=== PATIENT | female | born 1995 | race Caucasian/White ===

== ENCOUNTER 2017-11-25 13:49 | Emergency (ER) | payer MEDICAID ==
[~2017-11-25 13:49] MED LIST: ACE325 PO; ACET-1966 PO; AMOX-362 PO; CIP500 PO; CIPR-344 PO; DICL100T54 PO; DOCO200C PO; DOXY150T6 PO; GENT3.5O26 OP; HYDR-3074 PO; HYDR-3250 PO; HYDR12.561 PO; IBUP600T22 PO; IBUP800T37 PO; LACT1CAP6 PO; LOR5/325 PO; MED150I IM; METR250 PO; MINOCY50PT PO; MUP2T TOP; NAP500 PO; NITR-105 PO; NORG1TAB6; ONDA-153 SL; ONDA4TAB PO; ONDA4TAB97 PO; PERM60CR TP; PHEN-530 PO; PRE10 PO; PREN-129 PO; QUET200T29 PO; TRA50 PO; TRAM-627 PO; TRAZ-133 PO; TRAZADONE; VENL150C61 PO; VENL37.594 PO
[2017-11-25] MEDS ORDERED: NS(*) 0.9% 1000 ML BAG 1,000 ML IV ONE (14:00)
--- NOTE | 2017-11-25 14:01 | ER Report ---
History and Physical Time Seen By MD: 14:01 Hx. of Stated Complaint: Hematuria HPI/ROS 22-year-old female has had dysuria today woke up with left flank pain and blood in her urine Allergies: Coded Allergies: Sulfa (Sulfonamide Antibiotics) (Verified Allergy, Mild, 10/21/15) nitrofurantoin (Verified Allergy, Unknown, 10/21/15) Home Meds Active Scripts Ciprofloxacin Hcl (CIPROFLOXACIN HCL) 500 Mg Tablet, 500 MG PO Q12H, #14 TAB Prov:MATTIE SUN 11/25/17 Reported Medications Venlafaxine Hcl (EFFEXOR XR) 150 Mg Cap.er.24h, 150 MG PO QDAY 10/21/15 Discontinued Reported Medications Hydrochlorothiazide (HYDROCHLOROTHIAZIDE) 12.5 Mg Tablet, 1 TAB PO QDAY, TAB 10/21/15 Lactobacillus Combination No.4 (PROBIOTIC) 1 Each Capsule, 1 EACH PO DAILY, CAPSULE 10/21/15 Vit37/Iron/Folic Acid (PRENATA CHEWABLE TABLET) 1 Each Tab.chew, 1 EACH PO DAILY, TAB.CHEW 10/21/15 Venlafaxine Hcl (EFFEXOR XR) 37.5 Mg Cap.er.24h, 37.5 MG PO QDAY 10/21/15 Docosahexanoic Acid ( DHA) 200 Mg Capsule, 200 MG PO 04/12/13 Discontinued Scripts Hydrocodone Bit/Acetaminophen (HYDROCODON-ACETAMINOPHEN 5-325) 1 Each Tablet, 1- 2 EACH PO Q6H for PAIN, #15 TAB Prov:KADY PEREZ DO 10/21/15 Ibuprofen (IBUPROFEN) 800 Mg Tablet, 1 TAB PO Q8H for PAIN, #50 TAB Prov:KADY PEREZ DO 10/21/15 Gentamicin Sulfate (GENTAMICIN SULFATE) 3.5 Gm Oint...g., 3.5 GM OP TID, #1 Prov:KADY PEREZ DO 10/21/15 Ondansetron (ZOFRAN ODT) 4 Mg Tab.rapdis, 4 MG PO Q6H for Nausea, #15 TAB.AIDA Prov:KADY PEREZ DO 10/21/15 Past Medical/Surgical History depression Reviewed Nurses Notes: Yes Old Medical Records Reviewed: Yes Hx Smoking: No Exposure to Second Hand Smoke?: No Hx Substance Use Disorder: No Hx Alcohol Use: No Constitutional Vital Sign - Last 24 Hours 11/25/17 11/25/17 11/25/17 11/25/17 13:59 14:43 14:49 15:00 Temp 97.9 Pulse 76 78 Resp 18 B/P (MAP) 100/69 97/65 (76) 105/75 (85) Pulse Ox 99 98 11/25/17 11/25/17 11/25/17 11/25/17 15:04 15:19 15:30 15:34 Pulse 70 69 70 B/P (MAP) 111/69 (83) Pulse Ox 97 98 Physical Exam General Appearance: [The patient is alert, has no immediate need for airway protection and no current signs of toxicity.] [ ] Eyes: Pupils equal and round no injection. Respiratory: Chest is non tender, lungs are clear to auscultation. Cardiac: regular rate and rhythm [ ] Gastrointestinal: Abdomen is soft and non tender, no masses, bowel sounds normal. Left CVA tenderness Musculoskeletal: Neck: Neck is supple and non tender. Extremities have full range of motion and are non tender. Skin: No rashes or lesions. [ ] DIFFERENTIAL DIAGNOSIS: After history and physical exam differential diagnosis was considered for UTI, kidney stone, pyelonephritis [ ] Medical Decision Making Data Points Result Diagram: 11/25/17 1420 11/25/17 1420 Laboratory Hematology Test 11/25/17 14:00 11/25/17 14:20 Urine Color Yellow Urine Clarity Turbid Urine pH 6.0 pH (4.8-9.5) Urine Specific Neptune 1.025 Urine Protein 30 mg/dL (NEGATIVE) Urine Glucose (UA) Negative mg/dL (NEGATIVE) Urine Ketones Negative mg/dL (NEGATIVE) Urine Blood Large (NEGATIVE) Urine Nitrite Negative (NEGATIVE) Urine Bilirubin Negative (NEGATIVE) Urine Urobilinogen 0.2 mg/dL (0.2-1.9) Urine Leukocyte Esterase Moderate (NEGATIVE) Urine RBC Tntc /HPF (0-2/HPF) Urine WBC Tntc /HPF (0-5/HPF) Urine Squamous Epithelial Cells Rare /LPF (</=FEW) Urine Bacteria Moderate /HPF (NONE-FEW) Urine Mucus Few /HPF (NONE-FEW) Urine HCG, Qualitative Negative (NEGATIVE) Red Blood Count 4.69 M/uL (4.17-5.56) Mean Corpuscular Volume 90.9 fL (80.0-96.0) Mean Corpuscular Hemoglobin 32.1 pg (26.0-33.0) Mean Corpuscular Hemoglobin Concent 35.3 g/dL (32.0-36.0) Red Cell Distribution Width 12.9 % (11.5-14.5) Mean Platelet Volume 8.5 fL (7.2-11.1) Neutrophils (%) (Auto) 74.0 % (39.4-72.5) Lymphocytes (%) (Auto) 19.2 % (17.6-49.6) Monocytes (%) (Auto) 6.4 % (4.1-12.4) Eosinophils (%) (Auto) 0.1 % (0.4-6.7) Basophils (%) (Auto) 0.3 % (0.3-1.4) Nucleated RBC Relative Count (auto) 0.0 /100WBC Neutrophils # (Auto) 5.4 K/uL (2.0-7.4) Lymphocytes # (Auto) 1.4 K/uL (1.3-3.6) Monocytes # (Auto) 0.5 K/uL (0.3-1.0) Eosinophils # (Auto) 0.0 K/uL (0.0-0.5) Basophils # (Auto) 0.0 K/uL (0.0-0.1) Nucleated RBC Absolute Count (auto) 0.00 K/uL Sodium Level 141 mmol/L (137-145) Potassium Level 4.0 mmol/L (3.5-5.0) Chloride Level 106 mmol/L (98-107) Carbon Dioxide Level 22 mmol/L (22-31) Blood Urea Nitrogen 19 mg/dl (7-18) Creatinine 0.90 mg/dl (0.52-1.04) Glomerular Filtration Rate Calc > 60.0 Random Glucose 91 mg/dl (75-110) Calcium Level 9.8 mg/dl (8.4-10.2) Total Bilirubin 0.4 mg/dl (0.2-1.3) Aspartate Amino Transf (AST/SGOT) 26 U/L (0-35) Alanine Aminotransferase (ALT/SGPT) 18 U/L (0-56) Alkaline Phosphatase 74 U/L (0-126) Total Protein 8.2 gm/dl (6.3-8.2) Albumin 4.8 g/dl (3.5-5.0) Chemistry Test 11/25/17 14:00 11/25/17 14:20 Urine Color Yellow Urine Clarity Turbid Urine pH 6.0 pH (4.8-9.5) Urine Specific Neptune 1.025 Urine Protein 30 mg/dL (NEGATIVE) Urine Glucose (UA) Negative mg/dL (NEGATIVE) Urine Ketones Negative mg/dL (NEGATIVE) Urine Blood Large (NEGATIVE) Urine Nitrite Negative (NEGATIVE) Urine Bilirubin Negative (NEGATIVE) Urine Urobilinogen 0.2 mg/dL (0.2-1.9) Urine Leukocyte Esterase Moderate (NEGATIVE) Urine RBC Tntc /HPF (0-2/HPF) Urine WBC Tntc /HPF (0-5/HPF) Urine Squamous Epithelial Cells Rare /LPF (</=FEW) Urine Bacteria Moderate /HPF (NONE-FEW) Urine Mucus Few /HPF (NONE-FEW) Urine HCG, Qualitative Negative (NEGATIVE) White Blood Count 7.3 k/uL (4.5-11.0) Red Blood Count 4.69 M/uL (4.17-5.56) Hemoglobin 15.0 g/dL (12.0-16.0) Hematocrit 42.6 % (34.0-47.0) Mean Corpuscular Volume 90.9 fL (80.0-96.0) Mean Corpuscular Hemoglobin 32.1 pg (26.0-33.0) Mean Corpuscular Hemoglobin Concent 35.3 g/dL (32.0-36.0) Red Cell Distribution Width 12.9 % (11.5-14.5) Platelet Count 239 K/uL (150-450) Mean Platelet Volume 8.5 fL (7.2-11.1) Neutrophils (%) (Auto) 74.0 % (39.4-72.5) Lymphocytes (%) (Auto) 19.2 % (17.6-49.6) Monocytes (%) (Auto) 6.4 % (4.1-12.4) Eosinophils (%) (Auto) 0.1 % (0.4-6.7) Basophils (%) (Auto) 0.3 % (0.3-1.4) Nucleated RBC Relative Count (auto) 0.0 /100WBC Neutrophils # (Auto) 5.4 K/uL (2.0-7.4) Lymphocytes # (Auto) 1.4 K/uL (1.3-3.6) Monocytes # (Auto) 0.5 K/uL (0.3-1.0) Eosinophils # (Auto) 0.0 K/uL (0.0-0.5) Basophils # (Auto) 0.0 K/uL (0.0-0.1) Nucleated RBC Absolute Count (auto) 0.00 K/uL Glomerular Filtration Rate Calc > 60.0 Calcium Level 9.8 mg/dl (8.4-10.2) Total Bilirubin 0.4 mg/dl (0.2-1.3) Aspartate Amino Transf (AST/SGOT) 26 U/L (0-35) Alanine Aminotransferase (ALT/SGPT) 18 U/L (0-56) Alkaline Phosphatase 74 U/L (0-126) Total Protein 8.2 gm/dl (6.3-8.2) Albumin 4.8 g/dl (3.5-5.0) Urinalysis Test 11/25/17 14:00 Urine Color Yellow Urine Clarity Turbid Urine pH 6.0 pH (4.8-9.5) Urine Specific Neptune 1.025 Urine Protein 30 mg/dL (NEGATIVE) Urine Glucose (UA) Negative mg/dL (NEGATIVE) Urine Ketones Negative mg/dL (NEGATIVE) Urine Blood Large (NEGATIVE) Urine Nitrite Negative (NEGATIVE) Urine Bilirubin Negative (NEGATIVE) Urine Urobilinogen 0.2 mg/dL (0.2-1.9) Urine Leukocyte Esterase Moderate (NEGATIVE) Urine RBC Tntc /HPF (0-2/HPF) Urine WBC Tntc /HPF (0-5/HPF) Urine Squamous Epithelial Cells Rare /LPF (</=FEW) Urine Bacteria Moderate /HPF (NONE-FEW) Urine Mucus Few /HPF (NONE-FEW) Urine HCG, Qualitative Negative (NEGATIVE) ED Course/Re-evaluation Clinical Indication for ER IV: Hydration ED Course Given normal saline for fluids 30 of Toradol IV hydrocodone 2 by mouth she does not have a fever does not have a white count does have urinary tract infection the CT is showing a stone in her kidney pelvis there is nothing in the ureters we'll treat her with 1 g Rocephin IV in the ER home with Cipro 500 twice a day for a week Re-evaluation Diagnosis UTI urine cultures pending Decision to Disposition Date: November 25, 2017 Decision to Disposition Time: 15:22 Depart Departure Latest Vital Signs Vital Signs Date Time Temp Pulse Resp B/P (MAP) Pulse Ox O2 Delivery O2 Flow Rate FiO2 11/25/17 15:34 70 98 11/25/17 15:30 111/69 (83) 11/25/17 13:59 97.9 18 Impression: Primary Impression: Urinary tract infection Additional Impression: Acute hemorrhagic cystitis Condition: Improved Disposition: HOME OR SELF-CARE Referrals: [facility] 2 Days New Scripts Ciprofloxacin Hcl (CIPROFLOXACIN HCL) 500 Mg Tablet 500 MG PO Q12H, #14 TAB Prov: MATTIE SUN 11/25/17 Patient Instructions: Urinary Tract Infection in Women (ED) Additional Instructions: Drink plenty of fluids, medication as prescribed follow-up with the primary care physician Problem Qualifiers MATTIE SUN November 25, 2017 14:01
[2017-11-25] MEDS ORDERED: KETOROLAC 30 MG/ML VIAL IVP ONE (14:25)
[2017-11-25 14:41] LABS: PLATELET COUNT, AUTOMATED 239 K/uL (150-450)
--- NOTE | 2017-11-25 15:11 | RADIOLOGY IMAGING REPORT ---
[place] [facility] [place] Radha Darby : 1995 MR: [id number] V: [id number] EXAM DATE: ORDERING PHYSICIAN: MATTIE SUN TECHNOLOGIST: Location: [facility] - [place] Patient: Radha Darby : 1995 Visit/Account:[id number] Date of Sevice: 11/25/2017 EXAMINATION: CT abdomen without IV contrast CT pelvis without IV contrast HISTORY: Left flank pain. Hematuria. COMPARISON: 12/02/2012. TECHNIQUE: Axial images were taken through the abdomen and pelvis without intravenous contrast. Sag ittal and coronal reformatted images are also submitted. One of the following dose optimization techniques was utilized in the performance of this exam: Autom ated exposure control; adjustment of the mA and/or kV according to the patient's size; or use of an i terative reconstruction technique. Specific details can be referenced in the facility's radiology C T exam operational policy. FINDINGS: Please note that without intravenous contrast, sensitivity to detection of parenchymal disease is montejo ited. Liver/biliary: Negative. Pancreas: Negative. Spleen: Negative. Adrenal glands: Negative. Kidneys: 2 mm and 1.5 mm nonobstructive calculi in the left kidney. No hydronephrosis. No ureteral ca lculi are identified. Small phlebolith in the left side of the pelvis near the left ureter. Pelvic structures: Negative. Bowel: The bowel is normal caliber without obvious focal wall thickening. Status post appendectomy. Peritoneum/retroperitoneum/mesenteries: No intraperitoneal free air or free fluid. Vessels: Negative. Musculoskeletal/body wall: Negative. Lymph node assessment: Negative. Lower chest: Negative. IMPRESSION: Small nonobstructive calculi in the left kidney. No hydronephrosis or evidence of ureteral calculi. Report Dictated By: Geoffrey Schneider MD at 11/25/2017 2:52 PM Report E-Signed By: Geoffrey Schneider MD at 11/25/2017 3:07 PM WSN:[id number]
[2017-11-25] MEDS ORDERED: cefTRIAXone(*) 1 GM VIAL 1 GM in NS(*) 0.9% 100 ML ADDVANT BAG 100 ML IVPB ONE (15:20)
[2017-11-25] MEDS ORDERED: CIPR-214 PO (15:22)
[2017-11-25 15:30] VITALS: BP 111/69
[2017-11-25] MEDS ORDERED: APAP/HYDROCODONE 325/5 TAB PO ONE (15:40)
[2017-11-26] MEDS ORDERED: cefTRIAXone 1 GM VIAL IVP ONE (07:20)
== END 2017-11-25 15:51 | disposition home or self-care (01) ==
LOC: ER 13:50
DX: N30.00 Acute cystitis without hematuria (principal)
CPT/HCPCS: 74176; 81001; 81025; 85025; 87077; 87088; 87186; 96361; 96374; 96375; 99284; J0696; J1885; J7030; 82040; 82247; 82310; 82374; 82435; 82565; 82947; 84075; 84132; 84155; 84295; 84450; 84460; 84520; J7050

== ENCOUNTER 2018-09-09 22:18 | Emergency (ER) | payer SELFPAY ==
[~2018-09-09 22:18] MED LIST changes: +CIPR-214 PO; +KET10 PO
--- NOTE | 2018-09-09 23:13 | ER Report ---
History and Physical Time Seen By MD: 23:12 HPI/ROS CHIEF COMPLAINT: ear pain HISTORY OF PRESENT ILLNESS: This is a 23 year old female. She has been having ear pain for a few weeks, worsening over the last 24 hours. Airline flight home caused increased pain. Feeling pain in the ear, mastoid, jaw area, and behind the eye. Feels like here eye is bulging. Has poor vision on left eye even with contact in place. Has history of Menier's disease and TMJ as well. Has had ear infections, but this feels different. Has had decreased hearing on the left side as well. No fevers or chills noted. Has history of intermittent headaches, but this feels different for her. Has also had some numbness in the left arm. No weakness. No other neurologic changes. Allergies: Coded Allergies: Sulfa (Sulfonamide Antibiotics) (Verified Allergy, Mild, 10/21/15) nitrofurantoin (Verified Allergy, Unknown, 10/21/15) Home Meds Active Scripts Methylprednisolone (METHYLPREDNISOLONE) 4 Mg Tab.ds.pk, 4 MG PO DIRECTED, #1 PACK 0 Refills Prov:DRU VILLAGOMEZ MD 09/10/18 Oxycodone Hcl/Acetaminophen (PERCOCET 5-325 MG TABLET) 1 Each Tablet, 1 EACH PO Q4H PRN for PAIN, #12 TAB 0 Refills Prov:DRU VILLAGOMEZ MD 09/10/18 Reported Medications Venlafaxine Hcl (EFFEXOR XR) 150 Mg Cap.er.24h, 150 MG PO QDAY 10/21/15 Discontinued Scripts Ketorolac Tromethamine (KETOROLAC TROMETHAMINE) 10 Mg Tab, 10 MG PO Q6H PRN for PAIN, #12 TAB 0 Refills Prov:DRU VILLAGOMEZ MD 04/29/18 Ondansetron (ZOFRAN ODT) 4 Mg Tab.rapdis, 4 MG PO Q6H PRN for NAUSEA/VOMITING, #20 TAB.AIDA 0 Refills Prov:DRU VILLAGOMEZ MD 04/29/18 Ciprofloxacin 500 Mg Tab (CIPROFLOXACIN 500 MG TAB) 500 Mg Tablet, 500 MG PO Q12H, #14 TAB Prov:MATTIE SUN 11/25/17 Reviewed Nurses Notes: Yes Hx Smoking: No Exposure to Second Hand Smoke?: No Hx Substance Use Disorder: No Hx Alcohol Use: No Constitutional Vital Sign - Last 24 Hours 09/09/18 09/09/18 09/10/18 09/10/18 23:08 23:10 01:00 01:51 Temp 98.4 Pulse 92 78 Resp 14 B/P (MAP) 108/97 (101) 108/97 110/74 (86) Pulse Ox 96 94 O2 Delivery Room Air 09/10/18 09/10/18 01:52 02:00 Pulse 73 B/P (MAP) 105/71 (82) Pulse Ox 93 Physical Exam General Appearance: The patient is alert. No acute distress. Non-toxic in appearance. Eyes: Pupils are equal, round. Reactive to light. No pallor, injection or icterus. Extraocular movements are intact. ENT: Mucous membranes are moist. Normal oral mucosa. Posterior oropharynx is normal. Normal nasal mucosa. TM and canal on the right is normal. TM on left has fluid behind it, consistent with effusion. Neck: Supple and non tender. No lymphadenopathy. Respiratory: Lungs are clear to auscultation. Cardiovascular: Regular rate and rhythm. No murmurs, gallops or rubs. Normal capillary refill. Gastrointestinal: Abdomen is soft and non tender. Nondistended. Normal active bowel sounds. Neurological: Alert and oriented x3. Cranial nerves with eye exam as noted. Midline tongue, symmetric palate, no facial droop or asymmetry. No focal neurologic deficits in the extremities. Skin: Warm and dry. Musculoskeletal: No tenderness in palpation of the cervical, thoracic and lumbar spine. DIFFERENTIAL DIAGNOSIS: After history and physical exam, differential diagnosis was considered for a patient with left ear and facial pain, visual changes, left arm numbness. Imaging recommended and labs Medical Decision Making Data Points Result Diagram: 09/10/18 0011 09/10/18 0011 Laboratory Hematology Test 09/10/18 00:11 Red Blood Count 4.45 M/uL (4.17-5.56) Mean Corpuscular Volume 91.0 fL (80.0-96.0) Mean Corpuscular Hemoglobin 32.4 pg (26.0-33.0) Mean Corpuscular Hemoglobin Concent 35.6 g/dL (32.0-36.0) Red Cell Distribution Width 12.0 % (11.5-14.5) Mean Platelet Volume 8.7 fL (7.2-11.1) Neutrophils (%) (Auto) 63.1 % (39.4-72.5) Lymphocytes (%) (Auto) 27.5 % (17.6-49.6) Monocytes (%) (Auto) 9.0 % (4.1-12.4) Eosinophils (%) (Auto) 0.3 % (0.4-6.7) Basophils (%) (Auto) 0.1 % (0.3-1.4) Nucleated RBC Relative Count (auto) 0.1 /100WBC Neutrophils # (Auto) 3.9 K/uL (2.0-7.4) Lymphocytes # (Auto) 1.7 K/uL (1.3-3.6) Monocytes # (Auto) 0.6 K/uL (0.3-1.0) Eosinophils # (Auto) 0.0 K/uL (0.0-0.5) Basophils # (Auto) 0.0 K/uL (0.0-0.1) Nucleated RBC Absolute Count (auto) 0.00 K/uL Erythrocyte Sedimentation Rate 4 mm/HOUR (0-20) Sodium Level 139 mmol/L (137-145) Potassium Level 3.2 mmol/L (3.5-5.0) Chloride Level 102 mmol/L (98-107) Carbon Dioxide Level 25 mmol/L (22-31) Blood Urea Nitrogen 19 mg/dl (7-18) Creatinine 0.80 mg/dl (0.52-1.04) Glomerular Filtration Rate Calc > 60.0 Random Glucose 87 mg/dl (75-110) Calcium Level 9.3 mg/dl (8.4-10.2) Total Bilirubin 0.5 mg/dl (0.2-1.3) Aspartate Amino Transf (AST/SGOT) 22 U/L (0-35) Alanine Aminotransferase (ALT/SGPT) 23 U/L (0-56) Alkaline Phosphatase 57 U/L (0-126) C-Reactive Protein < 0.5 mg/dl (<1.0) Total Protein 7.8 g/dl (6.3-8.2) Albumin 4.9 g/dl (3.5-5.0) Chemistry Test 09/10/18 00:11 White Blood Count 6.2 k/uL (4.5-11.0) Red Blood Count 4.45 M/uL (4.17-5.56) Hemoglobin 14.4 g/dL (12.0-16.0) Hematocrit 40.5 % (34.0-47.0) Mean Corpuscular Volume 91.0 fL (80.0-96.0) Mean Corpuscular Hemoglobin 32.4 pg (26.0-33.0) Mean Corpuscular Hemoglobin Concent 35.6 g/dL (32.0-36.0) Red Cell Distribution Width 12.0 % (11.5-14.5) Platelet Count 244 K/uL (150-450) Mean Platelet Volume 8.7 fL (7.2-11.1) Neutrophils (%) (Auto) 63.1 % (39.4-72.5) Lymphocytes (%) (Auto) 27.5 % (17.6-49.6) Monocytes (%) (Auto) 9.0 % (4.1-12.4) Eosinophils (%) (Auto) 0.3 % (0.4-6.7) Basophils (%) (Auto) 0.1 % (0.3-1.4) Nucleated RBC Relative Count (auto) 0.1 /100WBC Neutrophils # (Auto) 3.9 K/uL (2.0-7.4) Lymphocytes # (Auto) 1.7 K/uL (1.3-3.6) Monocytes # (Auto) 0.6 K/uL (0.3-1.0) Eosinophils # (Auto) 0.0 K/uL (0.0-0.5) Basophils # (Auto) 0.0 K/uL (0.0-0.1) Nucleated RBC Absolute Count (auto) 0.00 K/uL Erythrocyte Sedimentation Rate 4 mm/HOUR (0-20) Glomerular Filtration Rate Calc > 60.0 Calcium Level 9.3 mg/dl (8.4-10.2) Total Bilirubin 0.5 mg/dl (0.2-1.3) Aspartate Amino Transf (AST/SGOT) 22 U/L (0-35) Alanine Aminotransferase (ALT/SGPT) 23 U/L (0-56) Alkaline Phosphatase 57 U/L (0-126) C-Reactive Protein < 0.5 mg/dl (<1.0) Total Protein 7.8 g/dl (6.3-8.2) Albumin 4.9 g/dl (3.5-5.0) EKG/Imaging Imaging CT face without contrast Comparison: None Additional pertinent history: Left facial and ear pain TECHNIQUE: Multiple axial images were obtained through the facial bones without IV contrast. Coronal and sagittal reformatted images were obtained off the axial source data. One of the following dose optimization techniques was utilized in the performance of this exam: Automated exposure control; adjustment of the mA and/or kV according to the patient's size; or use of an iterative reconstruction technique. Specific details can be referenced in the facility's radiology CT exam operational policy. FINDINGS: Zygomas/zygomatic arches:Negative Jiang of the orbits: Negative Orbital floors: Negative Jiang of the paranasal sinuses: Negative Pterygoid plates: Negative Nasal bones/nasal septum: Negative Maxilla: Negative Mandible: Negative Orbits: Negative Paranasal sinuses: Negative Surrounding soft tissues: Negative IMPRESSION: Normal CT of the face without contrast. Report Dictated By: Nathen Lobo MD at 09/10/2018 12:59 AM MR BRAIN/BRAIN STEM W/ & W/O CON Comparisons: None. Additional pertinent history: Blurry vision and headache TECHNIQUE: Multiplanar, multisequence brain MRI was performed with and without gadolinium contrast. CONTRAST: 13 ml of MultiHance. FINDINGS: Sagittal midline structures and craniocervical junction: Negative. Midline shift: None. Ventricles: Negative. Brain parenchyma: Diffusion weighted imaging: Negative. Gradient sequence: Negative. T2 weighted FLAIR images: Negative. Extra-axial spaces: Negative. Dural venous sinuses and major arterial flow voids: Negative. Intracranial enhancement: Negative.. Mastoid air cells and paranasal sinuses: Negative. Surrounding soft tissues and orbits: Negative. Impression: Normal brain MRI with and without contrast. Report Dictated By: Nathen Lobo MD at 09/10/2018 2:10 AM ED Course/Re-evaluation Clinical Indication for ER IV: Hydration, IV Access ED Course Labs unremarkable. Imaging including CT facial bones and MRI brain with and without contrast done and negative. Recommended follow-up with either ENT or neurology for further evaluation. Medrol Dosepack and Percocet prescribed. Decision to Disposition Date: Sep 10, 2018 Decision to Disposition Time: 02:36 Depart Departure Latest Vital Signs Vital Signs Date Time Temp Pulse Resp B/P (MAP) Pulse Ox O2 Delivery O2 Flow Rate FiO2 09/10/18 02:00 73 93 09/10/18 01:52 105/71 (82) 09/09/18 23:10 98.4 14 Room Air Impression: Primary Impression: Ear pain, left Additional Impression: Facial pain Condition: Improved Disposition: HOME OR SELF-CARE New Scripts Methylprednisolone (METHYLPREDNISOLONE) 4 Mg Tab.ds.pk 4 MG PO DIRECTED, #1 PACK 0 Refills Prov: DRU VILLAGOMEZ MD 09/10/18 Oxycodone Hcl/Acetaminophen (PERCOCET 5-325 MG TABLET) 1 Each Tablet 1 EACH PO Q4H PRN for PAIN, #12 TAB 0 Refills Prov: DRU VILLAGOMEZ MD 09/10/18 Patient Instructions: Atypical Facial Pain (ED) Additional Instructions: With imaging and labs tonight, we were unable to find a cause for her pain. We would recommend following up with neurology or with ear nose and throat specialty. Start a Medrol Dosepak over the next 6 days. Percocet 5/325, one every 4 hours as needed for pain. Problem Qualifiers DRU VILLAGOMEZ MD Sep 09, 2018 23:13
[2018-09-10] MEDS ORDERED: APAP/HYDROCODONE 325/5 TAB PO ONE
[2018-09-10 00:35] LABS: PLATELET COUNT, AUTOMATED 244 K/uL (150-450)
--- NOTE | 2018-09-10 01:06 | RADIOLOGY IMAGING REPORT ---
FACILITY: [facility] - [place] PATIENT NAME: Radha Darby : 1995 MR: [id number] V: [id number] EXAM DATE: ORDERING PHYSICIAN: DRU VILLAGOMEZ TECHNOLOGIST: Location: [facility] Patient: Radha Darby : 1995 Visit/Account:[id number] Date of Sevice: 09/09/2018 CT face without contrast Comparison: None Additional pertinent history: Left facial and ear pain TECHNIQUE: Multiple axial images were obtained through the facial bones without IV contrast. Saenz l and sagittal reformatted images were obtained off the axial source data. One of the following dose optimization techniques was utilized in the performance of this exam: Automated exposure control; ad justment of the mA and/or kV according to the patient's size; or use of an iterative reconstruction technique. Specific details can be referenced in the facility's radiology CT exam operational policy . FINDINGS: Zygomas/zygomatic arches:Negative Jiang of the orbits: Negative Orbital floors: Negative Jiang of the paranasal sinuses: Negative Pterygoid plates: Negative Nasal bones/nasal septum: Negative Maxilla: Negative Mandible: Negative Orbits: Negative Paranasal sinuses: Negative Surrounding soft tissues: Negative IMPRESSION: Normal CT of the face without contrast. Report Dictated By: Nathen Lobo MD at 09/10/2018 12:59 AM Report E-Signed By: Nathen Lobo MD at 09/10/2018 1:02 AM WSN:[id number]
[2018-09-10] MEDS ORDERED: GADOBENATE 529MG/1ML 15ML VIAL IVP ONE (01:29)
[2018-09-10 01:52] VITALS: BP 105/71
--- NOTE | 2018-09-10 02:19 | RADIOLOGY IMAGING REPORT ---
FACILITY: [facility] PATIENT NAME: Radha Darby : 1995 MR: [id number] V: [id number] EXAM DATE: ORDERING PHYSICIAN: DRU VILLAGOMEZ TECHNOLOGIST: Location: [facility] Patient: Radha Darby : 1995 Visit/Account:[id number] Date of Sevice: 09/09/2018 MR BRAIN/BRAIN STEM W/ & W/O CON Comparisons: None. Additional pertinent history: Blurry vision and headache TECHNIQUE: Multiplanar, multisequence brain MRI was performed with and without gadolinium contrast. CONTRAST: 13 ml of MultiHance. FINDINGS: Sagittal midline structures and craniocervical junction: Negative. Midline shift: None. Ventricles: Negative. Brain parenchyma: Diffusion weighted imaging: Negative. Gradient sequence: Negative. T2 weighted FLAIR images: Negative. Extra-axial spaces: Negative. Dural venous sinuses and major arterial flow voids: Negative. Intracranial enhancement: Negative.. Mastoid air cells and paranasal sinuses: Negative. Surrounding soft tissues and orbits: Negative. Impression: Normal brain MRI with and without contrast. Report Dictated By: Nathen Lobo MD at 09/10/2018 2:10 AM Report E-Signed By: Nathen Lobo MD at 09/10/2018 2:14 AM WSN:[id number]
[2018-09-10] MEDS ORDERED: METH4TAB66 PO (02:39)
[2018-09-10] MEDS ORDERED: OXYC-865 PO (02:39)
[2018-09-10] MEDS ORDERED: oxyCODONE/ACETAMIN 5/325MG TH 2 TAB/BOTTLE PO ONE (02:40)
[2018-09-10] MEDS ORDERED: methylPREDNIS 4 MG TAB PO SCH (08:00)
== END 2018-09-10 02:54 | disposition home or self-care (01) ==
LOC: ER 23:29
DX: H92.02 Otalgia, left ear (principal); R51 Headache
CPT/HCPCS: 70486; 70553; 85025; 85651; 86140; 99284; A9577; J7509; 82040; 82247; 82310; 82374; 82435; 82565; 82947; 84075; 84132; 84155; 84295; 84450; 84460; 84520